=== PATIENT | male | born 1960 | race Caucasian/White ===

== ENCOUNTER 2016-08-05 11:59 | Emergency (ER) | payer OTHER, BC ==
[~2016-08-05] VITALS: Ht 182.9 cm; Wt 86.0 kg
[2016-08-05] MEDS ORDERED: FLEXERIL10 MG PO (13:35)
[2016-08-05] MEDS ORDERED: PERCOCET 5/31 TABLET PO (13:35)
[2016-08-05] MEDS ORDERED: STOOL SOFTENER240 MG PO (13:35)
[2016-08-05] MEDS ORDERED: MEDROL DOSEPAK4 MG PO (13:35)
[2016-08-05 14:21] VITALS: BP 141/86
== END 2016-08-05 14:22 | disposition home or self-care (01) ==
LOC: EME 11:59
DX: S39.012A Strain of muscle, fascia and tendon of lower back, initial encounter (principal); X50.9XXA Other and unspecified overexertion or strenuous movements or postures, initial encounter; Y99.0 Civilian activity done for income or pay; M54.16 Radiculopathy, lumbar region; R11.2 Nausea with vomiting, unspecified
CPT/HCPCS: 99281; 99283; J7512